=== PATIENT | male | born 1985 | race African-American/Black ===

== ENCOUNTER 2018-05-26 07:54 | Emergency (ER) | payer SELFPAY ==
[2018-05-26 08:58] LABS: Absolute Lymphocytes (CBC) 1.3 K/uL (0.7-4.9); Absolute Monocytes 0.6 K/uL (0.1-1.3); Basophils % 0.9 % (0-1.3); Hematocrit 49.3 % (39.6-49.0); Lymphocytes % 32.5 % (15.3-44.8); MPV 10.8 fL (7.6-11.3); Monocytes % 13.9 % (3.3-12.3); RBC Red Blood Cell Count 5.56 M/uL (4.33-5.43)
[2018-05-26 09:01] LABS: Protime INR 1.05
[2018-05-26] MEDS ORDERED: ASPIRIN 81 MG CHEWABLE TABLET ONE (09:09)
[2018-05-26] MEDS ORDERED: KETOROLAC 30 MG/ML INJ ONE (09:09)
[2018-05-26] MEDS ORDERED: NA CHLORIDE 0.9% 1,000 ML ONE (09:10)
--- NOTE | 2018-05-26 09:12 | RAD REPORT ---
EXAM DESCRIPTION: RAD - Chest Single View - 05/26/2018 9:01 am CLINICAL HISTORY: PAIN Chest pain. COMPARISON: CHEST SINGLE VIEW dated 07/03/2014 FINDINGS: Portable technique limits examination quality. The lungs are grossly clear. The heart is normal in size. No displaced fractures. IMPRESSION: No acute intrathoracic process suspected.
[2018-05-26 09:18] LABS: ALT/SGPT 20 U/L (12-78); AST/SGOT 9 U/L (15-37); Albumin 3.8 g/dL (3.4-5.0); Alkaline Phosphatase 51 U/L (45-117); BUN Blood Urea Nitrogen 11 mg/dL (7-18); Bicarbonate 32 mmol/L (21-32); Bilirubin Direct 0.1 mg/dL (0-0.2); Bilirubin Total 0.4 mg/dL (0.2-1.0); Glucose Level 94 mg/dL (74-106); NT PRO-BNP 12 pg/mL (<125); Potassium 4.1 mmol/L (3.5-5.1); Protein, Total 7.3 g/dL (6.4-8.2); Sodium Level 142 mmol/L (136-145); Troponin (Emerg Dept Use Only) < 0.02 ng/mL (0.0-0.045)
[2018-05-26 09:52] LABS: Barbiturates NEGATIVE (NEGATIVE); Benzodiazepines NEGATIVE (NEGATIVE); Cocaine NEGATIVE (NEGATIVE); METHAMPHETAM NEGATIVE (NEGATIVE); Methadone NEGATIVE (NEGATIVE); Opiates NEGATIVE (NEGATIVE); Phencyclidine NEGATIVE (NEGATIVE); THC Cannibis NEGATIVE (NEGATIVE)
[2018-05-26] MEDS ORDERED: BENZONATATE 100 MG CAP PO ONE (10:21)
--- NOTE | 2018-05-26 10:54 | ER ---
Nurse's Notes [facility] Name: Austen Carrasco Age: 33 yrs Sex: Male : 1985 Arrival Date: 05/26/2018 Time: 07:56 Bed 20 Private MD: None, None Diagnosis: Hypertensive heart disease;Other chest pain;Cough Presentation: 05/26 08:11 Presenting complaint: Patient states: cough and chest pain x 3 days. Dizziness that ss began this morning. Transition of care: patient was not received from another setting of care. Onset of symptoms was May 23, 2018. Risk Assessment: Do you want to hurt yourself or someone else? Patient reports no desire to harm self or others. Initial Sepsis Screen: Does the patient meet any 2 criteria? No. Patient's initial sepsis screen is negative. Does the patient have a suspected source of infection? No. Patient's initial sepsis screen is negative. Care prior to arrival: None. 08:11 Method Of Arrival: Ambulatory ss 08:11 Acuity: KT 3 ss Historical: - Allergies: 08:15 No Known Allergies; ss - Home Meds: 08:15 None [Active]; ss - PMHx: 08:15 "mild heart attack"; ss - PSHx: 08:15 None; ss - Immunization history:: Adult Immunizations unknown. - Social history:: Smoking status: Patient/guardian denies using tobacco. - Ebola Screening: : Patient denies exposure to infectious person Patient denies travel to an Ebola-affected area in the 21 days before illness onset. Screenin:00 Abuse screen: Denies threats or abuse. Denies injuries from another. Nutritional sg screening: No deficits noted. Tuberculosis screening: No symptoms or risk factors identified. Never had TB. Fall Risk None identified. Assessment: 09:10 General: Appears in no apparent distress. well groomed, well developed, well nourished. sg Pain: Complains of pain in chest. 09:10 Pain: Pain does not radiate. Quality of pain is described as aching, dull. Neuro: Level sg of Consciousness is awake, alert, obeys commands, Oriented to person, place, time, situation, Underwriting Analyst are equal bilaterally Moves all extremities. Full function Gait is steady, Speech is normal, Facial symmetry appears normal, Pupils are PERRLA. Cardiovascular: Capillary refill is brisk in bilateral fingers Patient's skin is warm and dry. Chest pain is described as mild, quality is dull pressure. Respiratory: Airway is patent Respiratory effort is even, unlabored, Respiratory pattern is regular, symmetrical. GI: No signs and/or symptoms were reported involving the gastrointestinal system. : No signs and/or symptoms were reported regarding the genitourinary system. EENT: No signs and/or symptoms were reported regarding the EENT system. Derm: Skin is. Musculoskeletal: No signs and/or symptoms reported regarding the musculoskeletal system. 09:18 Reassessment: pt encouraged to provide urine specimen, pt denies needing to urinate, IV sg fluids continue to infuse, pt educated on Clean catch urine specimen procedure, stated understanding, awaiting results at this time, awaiting urine specimen. Vital Signs: 08:15 BP 159 / 103; Pulse 82; Resp 16; Temp 98.1(O); Pulse Ox 100% on R/A; Weight 88.45 kg; ss Height 5 ft. 9 in. (175.26 cm); Pain 7/10; 08:50 BP 142 / 102 RA; Pulse 78; Pulse Ox 100% on R/A; sg 09:00 BP 148 / 106 LA; Pulse 77; Resp 17; Pulse Ox 99% on R/A; sg 10:45 BP 133 / 92; Pulse 72; Resp 12 S; Pulse Ox 100% on R/A; sg 08:15 Body Mass Index 28.80 (88.45 kg, 175.26 cm) ED Course: 07:56 Patient arrived in ED. dl4 07:56 None, None is Private Physician. dl4 08:13 Triage completed. ss 08:15 Arm band placed on right wrist. ss 08:19 David Pathak PA is PHCP. cp 08:19 Rosa West MD is Attending Physician. cp 08:34 EKG done, by general service technician. reviewed by David DEVI. at1 08:41 Colt Bates, MARCELLUS is Primary Nurse. sg 08:50 Initial lab(s) drawn, by sc, sent to lab. Inserted saline lock: 20 gauge in right dh3 antecubital area, using aseptic technique. Blood collected. 09:05 XRAY Chest (1 view) In Process Unspecified. EDMS 09:15 Patient has correct armband on for positive identification. Bed in low position. Call sg light in reach. bilingual teacher assistant on. Pulse ox on. NIBP on. Warm blanket given. Head of bed elevated. 09:15 No provider procedures requiring assistance completed. 09:18 Flu and/or RSV swab sent to lab. 3 09:55 IV discontinued, intact, bleeding controlled, No redness/swelling at site. Pressure sg dressing applied. Administered Medications: 09:14 Drug: TORadol 30 mg Route: IVP; Site: right antecubital; sg 09:14 Drug: NS 0.9% 1000 ml Route: IV; Rate: 1 bolus; Site: right antecubital; sg 09:15 Drug: Aspirin Chewable Tablet 324 mg Route: PO; sg 10:20 Drug: Tessalon Perle 200 mg Route: PO; sg Outcome: 10:53 Discharge ordered by MD. cp 10:55 Discharged to home ambulatory, with family. sg 10:55 Condition: good 10:55 Discharge instructions given to patient, Instructed on discharge instructions, follow up and referral plans. safety practices, Demonstrated understanding of instructions, follow-up care. 11:03 Patient left the ED. 3 Signatures: Dispatcher [employer] EDMS Colt Bates RN RN sg Smirch, Shelby RN MARCELLUS ss Ivon Chao, honey processor EKG Tat1 David Pathak PA PA cp Herrera, Deanna 3 Nikhil Scales dl4 Corrections: (The following items were deleted from the chart) 09:15 09:00 BP 148 / 106; Pulse 77bpm; Resp 17bpm; Pulse Ox 99% RA; sg sg 09:15 08:50 BP 142 / 102; Pulse 78bpm; Pulse Ox 100% RA; sg sg
--- NOTE | 2018-05-26 10:55 | EDPHYS ---
Physician Documentation [facility] Name: Austen Carrasco Age: 33 yrs Sex: Male : 1985 Arrival Date: 05/26/2018 Time: 07:56 Bed 20 Private MD: None, None ED Physician Rosa West HPI: 05/26 08:40 This 33 yrs old Black Male presents to ER via Ambulatory with complaints of Chest Pain. cp 08:40 The patient or guardian reports chest pain that is located primarily in the anterior cp chest wall, middle. 08:40 The pain does not radiate. Associated signs and symptoms: Pertinent positives: cough, cp dizziness, Pertinent negatives: abdominal pain, diaphoresis, lower extremity pain, lower extremity swelling, recent travel, shortness of breath, syncope, vomiting. The chest pain is described as a heaviness. Duration: The patient or guardian reports a single episode, that is still ongoing. Severity of pain: in the emergency department the pain is a 7 / 10. 08:40 Modifying factors: the symptoms are aggravated by lying flat. cp Historical: - Allergies: 08:15 No Known Allergies; ss - Home Meds: 08:15 None [Active]; ss - PMHx: 08:15 "mild heart attack"; ss - PSHx: 08:15 None; ss - Immunization history:: Adult Immunizations unknown. - Social history:: Smoking status: Patient/guardian denies using tobacco. - Ebola Screening: : Patient denies exposure to infectious person Patient denies travel to an Ebola-affected area in the 21 days before illness onset. ROS: 08:45 Constitutional: Negative for body aches, chills, fever, poor PO intake. cp 08:45 Eyes: Negative for injury, pain, redness, and discharge. cp 08:45 ENT: Negative for drainage from ear(s), ear pain, sore throat, difficulty swallowing, difficulty handling secretions. 08:45 Neck: Negative for pain with movement, pain at rest, stiffness, tenderness. 08:45 Cardiovascular: Positive for chest pain, Negative for edema, palpitations. 08:45 Respiratory: Negative for cough, shortness of breath, wheezing. 08:45 Abdomen/GI: Negative for abdominal pain, nausea, vomiting, and diarrhea. 08:45 : Negative for urinary symptoms. 08:45 Skin: Negative for cellulitis, rash. 08:45 Neuro: Positive for dizziness, Negative for altered mental status, headache, syncope, near syncope, weakness. 08:45 All other systems are negative. Exam: 08:25 ECG was reviewed by the Attending Physician. cp 08:52 Constitutional: The patient appears in no acute distress, alert, awake, cp non-diaphoretic, non-toxic, well developed, well nourished. 08:52 Head/Face: Normocephalic, atraumatic. Eyes: Pupils equal round and reactive to light, cp extra-ocular motions intact. Lids and lashes normal. Conjunctiva and sclera are non-icteric and not injected. Cornea within normal limits. Periorbital areas with no swelling, redness, or edema. ENT: Nares patent. No nasal discharge, no septal abnormalities noted. Tympanic membranes are normal and external auditory canals are clear. Oropharynx with no redness, swelling, or masses, exudates, or evidence of obstruction, uvula midline. Mucous membranes moist. 08:52 Chest/axilla: Inspection: normal, Palpation: crepitus, is not appreciated, tenderness, that is mild, of the mid-sternal area, that partially reproduces the patient's complaints. 08:52 Cardiovascular: Rate: normal, Rhythm: regular, Pulses: Pulses are 2+ in right radial artery and left radial artery. Heart sounds: murmur, not appreciated, rub, not appreciated, gallop, not appreciated, Edema: is not appreciated, JVD: is not appreciated. 08:52 Respiratory: the patient does not display signs of respiratory distress, Respirations: normal, no use of accessory muscles, no retractions, no splinting, no tachypnea, labored breathing, is not present, Breath sounds: are clear throughout, no decreased breath sounds, no stridor, no wheezing. 08:52 Abdomen/GI: Inspection: abdomen appears normal, Bowel sounds: active, all quadrants, Palpation: abdomen is soft and non-tender, in all quadrants. 08:52 Back: pain, is absent, ROM is normal. 08:52 Skin: cellulitis, is not appreciated, no rash present. 08:52 Neuro: Orientation: to person, place \\T\\ time. Mentation: is normal, Cerebellar function: is grossly normal, Motor: is normal, Sensation: is normal. Vital Signs: 08:15 BP 159 / 103; Pulse 82; Resp 16; Temp 98.1(O); Pulse Ox 100% on R/A; Weight 88.45 kg; ss Height 5 ft. 9 in. (175.26 cm); Pain 7/10; 08:50 BP 142 / 102 RA; Pulse 78; Pulse Ox 100% on R/A; sg 09:00 BP 148 / 106 LA; Pulse 77; Resp 17; Pulse Ox 99% on R/A; sg 10:45 BP 133 / 92; Pulse 72; Resp 12 S; Pulse Ox 100% on R/A; sg 08:15 Body Mass Index 28.80 (88.45 kg, 175.26 cm) ss MDM: 08:19 Patient medically screened. cp 09:00 Differential diagnosis: abnormal EKG, acute myocardial infarction, chest wall pain, cp cholecystitis, Cholelithiasis costochondritis, esophagitis, gastroesophageal reflux disease (GERD), myocarditis, pancreatitis, peptic ulcer disease, pericarditis, pleurisy, pneumonia, pneumothorax, pulmonary embolus, stable angina, thoracic aortic disection, unstable angina. 10:50 Data reviewed: vital signs, nurses notes, lab test result(s), EKG, radiologic studies, cp plain films. 10:50 Test interpretation: by ED physician or midlevel provider: ECG, plain radiologic cp studies. 10:52 Counseling: I had a detailed discussion with the patient and/or guardian regarding: the cp historical points, exam findings, and any diagnostic results supporting the discharge/admit diagnosis, the presence of at least one elevated blood pressure reading (>120/80) during this emergency department visit, lab results, radiology results, the need for outpatient follow up, a family practitioner, to return to the emergency department if symptoms worsen or persist or if there are any questions or concerns that arise at home. 10:52 Response to treatment: the patient's symptoms have markedly improved after treatment. cp Special discussion: Based on the patient's history, exam, and Dx evaluation, there is no indication for emergent intervention or inpatient Tx. It is understood by the patient/guardian that if the Sx's persist or worsen they need to return immediately for re-evaluation. ED course: VSS. Pain improved with meds. Labs, EKG and chest xray negative for acute findings. Will discharge to home for continued monitoring. 05/26 08:39 Order name: Basic Metabolic Panel; Complete Time: 09:38 cp 05/26 10:41 Interpretation: Reviewed. cp 05/26 08:39 Order name: CBC with Diff; Complete Time: 09:08 cp 05/26 09:08 Interpretation: Normal except: WBC 4.0; RBC 5.56; HCT 49.3; MN% 13.9. cp 05/26 08:39 Order name: LFT's; Complete Time: 09:38 cp 05/26 09:38 Interpretation: Normal except: AST 9. cp 05/26 08:39 Order name: Magnesium; Complete Time: 09:38 cp 05/26 08:39 Order name: NT PRO-BNP; Complete Time: 09:38 cp 05/26 08:39 Order name: PT-INR; Complete Time: 09:08 cp 05/26 08:39 Order name: Troponin (emerg Dept Use Only); Complete Time: 09:38 cp 05/26 09:38 Interpretation: TROPED < 0.02; Reviewed. cp 05/26 08:39 Order name: XRAY Chest (1 view); Complete Time: 09:38 cp 05/26 09:38 Interpretation: Report review. cp 05/26 09:08 Order name: Influenza Screen (a \\T\\ B); Complete Time: 09:53 cp 05/26 09:53 Interpretation: Reviewed. cp 05/26 09:09 Order name: UDS; Complete Time: 10:19 cp 05/26 10:19 Interpretation: Reviewed. cp 05/26 09:37 Order name: Urine Dipstick--Ancillary (enter results) 05/26 08:39 Order name: EKG; Complete Time: 08:40 cp 05/26 08:39 Order name: Cardiac monitoring; Complete Time: 08:42 cp 05/26 08:39 Order name: EKG - Nurse/Tech; Complete Time: 09:05 cp 05/26 08:39 Order name: IV Saline Lock; Complete Time: 08:43 cp 05/26 08:39 Order name: Labs collected and sent; Complete Time: 08:43 cp 05/26 08:39 Order name: O2 Per Protocol; Complete Time: 08:43 cp 05/26 08:39 Order name: O2 Sat Monitoring; Complete Time: 08:43 cp 05/26 08:40 Order name: Blood Pressure Recheck: bilateral upper extremity; Complete Time: 09:10 cp 05/26 09:09 Order name: Urine Dipstick-Ancillary (obtain specimen); Complete Time: 09:38 cp EC:25 Rate is 72 beats/min. Rhythm is regular. MS interval is normal. QRS interval is normal. cp QT interval is normal. Interpreted by me. Reviewed by me. Administered Medications: 09:14 Drug: TORadol 30 mg Route: IVP; Site: right antecubital; sg 09:14 Drug: NS 0.9% 1000 ml Route: IV; Rate: 1 bolus; Site: right antecubital; sg 09:15 Drug: Aspirin Chewable Tablet 324 mg Route: PO; sg 10:20 Drug: Tessalon Perle 200 mg Route: PO; sg Disposition: 18:46 Co-signature as Attending Physician, Rosa West MD. ma2 Disposition: 05/26/18 10:53 Discharged to Home. Impression: Hypertensive heart disease, Other chest pain, Cough. - Condition is Stable. - Discharge Instructions: Chest Wall Pain, Hypertension, How to Take Your Blood Pressure, [id number], Aspirin and Your Heart, Cough, Adult, Managing Your Hypertension. - Prescriptions for Tessalon Perles 100 mg Oral Capsule - take 2 capsule by ORAL route every 8 hours As needed; 30 capsule. Naprosyn 500 mg Oral Tablet - take 1 tablet by ORAL route 2 times per day take with food; 20 tablet. - Medication Reconciliation Form, Thank You Letter, Antibiotic Education, Prescription Opioid Use form. - Follow up: Private Physician; When: 2 - 3 days; Reason: Recheck today's complaints. - Problem is new. - Symptoms have improved. Signatures: Dispatcher [employer] Colt Juarez RN RN sg Smirch, Shelby, RN RN ss Page, Corey, PA PA cp Herrera, Deanna formerly [facility] Rosa West MD MD ma2 Corrections: (The following items were deleted from the chart) 11:03 10:53 05/26/2018 10:53 Discharged to Home. Impression: Hypertensive heart disease; dh3 Other chest pain; Cough. Condition is Stable. Forms are Medication Reconciliation Form, Thank You Letter, Antibiotic Education, Prescription Opioid Use. Follow up: Private Physician; When: 2 - 3 days; Reason: Recheck today's complaints. Problem is new. Symptoms have improved. cp
--- NOTE | 2018-05-26 12:28 | EKG ---
Test Date: 2018-05-26 Test Time: 08:18:54 Insulation Worker Interior Surface: SHANTELL MEASUREMENT RESULTS: Intervals: Rate: 72 SD: 164 QRSD: 88 QT: 390 QTc: 427 [place]: P: 60 SD: 164 QRS: 74 T: 46 INTERPRETIVE STATEMENTS: Normal sinus rhythm Normal ECG Compared to ECG 07/03/2014 12:06:02 No significant changes Electronically Signed On 05-26-18 12:27:38 TEST DEPARTMENT HELPER by Lisandro Meza
[2018-05-26 15:16] LABS: Urine Blood TRACE (NEG); Urine Glucose NEGATIVE (NEG); Urine Protein NEGATIVE (NEG); Urine pH 7.5 (5.0-7.0)
== END 2018-05-26 11:03 | disposition home or self-care (01) ==
LOC: ER 07:54
DX: I11.9 Hypertensive heart disease without heart failure (principal); R07.9 Chest pain, unspecified; R05 Cough
CPT/HCPCS: 36415; 71045; 80048; 80076; 80307; 81003; 83735; 83880; 84484; 85025; 85610; 87804; 93005; 96374; 99285; J7030

== ENCOUNTER 2018-07-20 10:08 | Emergency (ER) | payer SELFPAY ==
--- NOTE | 2018-07-20 11:20 | RAD REPORT ---
EXAM DESCRIPTION: Malachi Single View07/20/2018 11:13 am CLINICAL HISTORY: Chest pain COMPARISON: April 2018 FINDINGS: The lungs appear clear of acute infiltrate. The heart is either upper limits normal or rey rderline enlarged IMPRESSION: No acute abnormalities displayed
[2018-07-20] MEDS ORDERED: ASPIRIN 81 MG CHEWABLE TABLET ONE (11:38)
[2018-07-20] MEDS ORDERED: ACETAMINOPHEN 325 MG TABLET ONE (11:39)
[2018-07-20 11:40] LABS: Absolute Lymphocytes (CBC) 1.4 K/uL (0.7-4.9); Absolute Monocytes 0.4 K/uL (0.1-1.3); Absolute Neutrophil 1.7 K/uL (1.8-8.0); Basophils % 0.6 % (0-1.3); Eosinophils % 2.7 % (0-4.4); Hematocrit 48.1 % (39.6-49.0); MPV 10.3 fL (7.6-11.3); Protime INR 1.06
[2018-07-20 11:44] LABS: ALT/SGPT 22 U/L (12-78); AST/SGOT 14 U/L (15-37); Albumin 3.9 g/dL (3.4-5.0); Alkaline Phosphatase 51 U/L (45-117); BUN Blood Urea Nitrogen 11 mg/dL (7-18); Bicarbonate 28 mmol/L (21-32); Bilirubin Direct < 0.1 mg/dL (0-0.2); Bilirubin Total 0.3 mg/dL (0.2-1.0); Glucose Level 98 mg/dL (74-106); Magnesium 1.9 mg/dL (1.8-2.4); Potassium 4.5 mmol/L (3.5-5.1); Protein, Total 7.3 g/dL (6.4-8.2); Sodium Level 139 mmol/L (136-145); Troponin (Emerg Dept Use Only) < 0.02 ng/mL (0.0-0.045)
[2018-07-20 11:48] LABS: NT PRO-BNP < 5 pg/mL (<125)
--- NOTE | 2018-07-20 12:41 | ER ---
Nurse's Notes [facility] Name: Austen Carrasco Age: 33 yrs Sex: Male : 1985 Arrival Date: 07/20/2018 Time: 10:11 Bed 15 Private MD: Diagnosis: Headache;Chest pain, unspecified Presentation: 07/20 10:22 Presenting complaint: Patient states: my head killing me and my chest hurts, fatigued, hj started yesterday; denies cough, denies fever; took tylenol 3 am this AM; reports nausea; reports;. Transition of care: patient was not received from another setting of care. Onset of symptoms was July 20, 2018. Risk Assessment: Do you want to hurt yourself or someone else? Patient reports no desire to harm self or others. Initial Sepsis Screen: Does the patient meet any 2 criteria? No. Patient's initial sepsis screen is negative. Does the patient have a suspected source of infection? No. Patient's initial sepsis screen is negative. Care prior to arrival: None. 10:22 Method Of Arrival: Ambulatory 10:22 Acuity: KT 3 hj Triage Assessment: 10:24 Headache History: Denies prior headaches. General: Appears in no apparent distress. hj uncomfortable, Behavior is calm, cooperative, appropriate for age. Pain: Complains of pain in head, chest Pain currently is 10 out of 10 on a pain scale. Pain began 1 day ago. Also complains of nausea. Neuro: Level of Consciousness is awake, alert, obeys commands, Oriented to person, place, time, situation, Appropriate for age. Historical: - Allergies: 10:24 No Known Drug Allergies; hj - Home Meds: 10:24 None [Active]; hj - PMHx: 10:24 "mild heart attack"; hj - PSHx: 10:24 None; hj - Immunization history:: Adult Immunizations up to date. - Social history:: Smoking status: Patient/guardian denies using tobacco, Patient/guardian denies using alcohol. - Ebola Screening: : Patient negative for fever greater than or equal to 101.5 degrees Fahrenheit, and additional compatible Ebola Virus Disease symptoms Patient denies exposure to infectious person Patient denies travel to an Ebola-affected area in the 21 days before illness onset. Screenin:24 Abuse screen: Denies threats or abuse. Denies injuries from another. Nutritional hj screening: No deficits noted. Tuberculosis screening: No symptoms or risk factors identified. Fall Risk None identified. Assessment: 10:40 General: Appears in no apparent distress. Behavior is calm, cooperative, appropriate tw2 for age. Pain: Complains of pain in chest and left breast and anterior aspect of left upper chest. Neuro: Level of Consciousness is awake, alert, obeys commands, Oriented to person, place, time, situation, Reports headache. Cardiovascular: Heart tones S1 S2 Patient's skin is warm and dry. Respiratory: Reports cough that is Airway is patent Respiratory effort is even, unlabored, Respiratory pattern is regular, symmetrical, Breath sounds are clear bilaterally. GI: Abdomen is flat, Bowel sounds present X 4 quads. Reports diarrhea. : No signs and/or symptoms were reported regarding the genitourinary system. EENT: No signs and/or symptoms were reported regarding the EENT system. Derm: No signs and/or symptoms reported regarding the dermatologic system. Musculoskeletal: Range of motion: intact in all extremities. 11:36 Reassessment: Patient appears in no apparent distress at this time. No changes from tw2 previously documented assessment. Patient and/or family updated on plan of care and expected duration. Pain level reassessed. Patient is alert, oriented x 3, equal unlabored respirations, skin warm/dry/pink. 12:34 Reassessment: Patient appears in no apparent distress at this time. No changes from tw2 previously documented assessment. Patient and/or family updated on plan of care and expected duration. Pain level reassessed. Patient is alert, oriented x 3, equal unlabored respirations, skin warm/dry/pink. 13:19 Reassessment: Patient appears in no apparent distress at this time. No changes from tw2 previously documented assessment. Patient and/or family updated on plan of care and expected duration. Pain level reassessed. Patient is alert, oriented x 3, equal unlabored respirations, skin warm/dry/pink. Vital Signs: 10:25 BP 127 / 96; Pulse 76; Resp 18; Temp 98.1(O); Pulse Ox 100% on R/A; Weight 90.72 kg; hj Height 5 ft. 9 in. (175.26 cm); Pain 10/10; 11:36 BP 126 / 78; Pulse 65; Resp 13; Pulse Ox 98% on R/A; tw2 12:31 BP 121 / 78; Pulse 65; Resp 15; Pulse Ox 100% on R/A; tw2 10:25 Body Mass Index 29.54 (90.72 kg, 175.26 cm) hj ED Course: 10:11 Patient arrived in ED. as 10:21 [facility] snw 10:21 Lewis Islas MD is Attending Physician. snw 10:23 Triage completed. hj 10:25 Arm band placed on right wrist. hj 10:25 Patient has correct armband on for positive identification. Placed in gown. Bed in low hj position. Call light in reach. Side rails up X 1. 10:34 EKG done, by process controls technician. reviewed by Lewis Islas MD. at1 10:40 Nani Ferrera, MARCELLUS is Primary Nurse. tw2 11:13 XRAY Chest (1 view) In Process Unspecified. EDMS 11:14 Initial lab(s) drawn, by me, sent to lab. Flu and/or RSV swab sent to lab. Inserted jb1 saline lock: 22 gauge in left antecubital area, using aseptic technique. Blood collected. 11:15 Flu Sent. jb1 13:28 No provider procedures requiring assistance completed. IV discontinued, intact, tw2 bleeding controlled, No redness/swelling at site. Pressure dressing applied. Administered Medications: 11:30 Drug: Aspirin Chewable Tablet 324 mg Route: PO; tw2 12:30 Follow up: Response: No adverse reaction tw2 11:30 Drug: Tylenol 650 mg Route: PO; tw2 12:30 Follow up: Response: No adverse reaction tw2 12:48 CANCELLED (route changed to IV): TORadol 60 mg IM once tw2 12:50 Drug: TORadol 30 mg Route: IVP; Site: left antecubital; tw2 13:28 Follow up: Response: No adverse reaction; Pain is decreased tw2 Outcome: 12:40 Discharge ordered by . snw 13:28 Discharged to home ambulatory, with family. tw2 13:28 Condition: stable 13:28 Discharge instructions given to patient, family, Instructed on discharge instructions, follow up and referral plans. medication usage, Demonstrated understanding of medications, Prescriptions given X 3. 13:29 Patient left the ED. tw2 Signatures: Dispatcher [employer] EDMS Olivier Howe jb1 Jerilyn Dennis, GRADES 1 6 TUTOR-C GRADES 1 6 TUTOR-Csnw Kelsy Woodward Amanda, operations vocational instructor EKG Tat1 Mushtaq Baez, RN RN hj Nani Ferrera RN RN tw2 Corrections: (The following items were deleted from the chart) 10 10:22 Presenting complaint: Patient states: my head killing me and my chest hurts, hj fatigued, started yesterday; denies cough, denies fever; took tylenol 3 am this AM; reports nausea; 10: 10:25 Pulse 76bpm; Resp 18bpm; Pulse Ox 100% RA; Temp 98.1F Oral; 90.72 kg; Height 5 hj ft. 9 in.; BMI: 29.5; Pain 02/03; hj 10: 10:22 Acuity: KT 4 hj hj
--- NOTE | 2018-07-20 12:41 | EDPHYS ---
Physician Documentation [facility] Name: Austen Carrasco Age: 33 yrs Sex: Male : 1985 Arrival Date: 07/20/2018 Time: 10:11 Bed 15 Private MD: ED Physician Lewsi Islas HPI: 07/20 10:52 This 33 yrs old Black Male presents to ER via Ambulatory with complaints of Headache, snw Chest Pain, Nausea. 10:52 The patient complains of pain to the forehead. snw 10:52 Pt c/o nausea, chest pain, body aches. Onset: The symptoms/episode began/occurred snw gradually, 3 day(s) ago. Severity of symptoms: At their worst the symptoms were moderate. The patient has experienced a previous episode. The patient has not recently seen a physician, and does not have an established primary care provider, just moved to area. Historical: - Allergies: 10:24 No Known Drug Allergies; hj - Home Meds: 10:24 None [Active]; hj - PMHx: 10:24 "mild heart attack"; hj - PSHx: 10:24 None; hj - Immunization history:: Adult Immunizations up to date. - Social history:: Smoking status: Patient/guardian denies using tobacco, Patient/guardian denies using alcohol. - Ebola Screening: : Patient negative for fever greater than or equal to 101.5 degrees Fahrenheit, and additional compatible Ebola Virus Disease symptoms Patient denies exposure to infectious person Patient denies travel to an Ebola-affected area in the 21 days before illness onset. ROS: 10:50 Eyes: Negative for injury, pain, redness, and discharge, ENT: Negative for injury, snw pain, and discharge, Neck: Negative for injury, pain, and swelling. 10:50 Respiratory: Negative for shortness of breath, cough, wheezing, and pleuritic chest pain, Abdomen/GI: Negative for abdominal pain, nausea, vomiting, diarrhea, and constipation, Back: Negative for injury and pain, : Negative for injury, bleeding, discharge, and swelling, MS/Extremity: Negative for injury and deformity, Skin: Negative for injury, rash, and discoloration. 10:50 Constitutional: Positive for body aches, malaise. 10:50 Cardiovascular: Positive for chest pain, of the anterior aspect of left upper chest and left breast. 10:50 Neuro: Positive for headache. Exam: 10:50 Constitutional: This is a well developed, well nourished patient who is awake, alert, snw and in no acute distress. 10:50 Head/Face: Normocephalic, atraumatic. Eyes: Pupils equal round and reactive to light, extra-ocular motions intact. Lids and lashes normal. Conjunctiva and sclera are non-icteric and not injected. Cornea within normal limits. Periorbital areas with no swelling, redness, or edema. ENT: Nares patent. No nasal discharge, no septal abnormalities noted. Tympanic membranes are normal and external auditory canals are clear. Oropharynx with no redness, swelling, or masses, exudates, or evidence of obstruction, uvula midline. Mucous membranes moist. Neck: Trachea midline, no thyromegaly or masses palpated, and no cervical lymphadenopathy. Supple, full range of motion without nuchal rigidity, or vertebral point tenderness. No Meningismus. Chest/axilla: Normal chest wall appearance and motion. Nontender with no deformity. No lesions are appreciated. Cardiovascular: Regular rate and rhythm with a normal S1 and S2. No gallops, murmurs, or rubs. Normal PMI, no JVD. No pulse deficits. Respiratory: Lungs have equal breath sounds bilaterally, clear to auscultation and percussion. No rales, rhonchi or wheezes noted. No increased work of breathing, no retractions or nasal flaring. Abdomen/GI: Soft, non-tender, with normal bowel sounds. No distension or tympany. No guarding or rebound. No evidence of tenderness throughout. Back: No spinal tenderness. No costovertebral tenderness. Full range of motion. Skin: Warm, dry with normal turgor. Normal color with no rashes, no lesions, and no evidence of cellulitis. MS/ Extremity: Pulses equal, no cyanosis. Neurovascular intact. Full, normal range of motion. Neuro: Awake and alert, GCS 15, oriented to person, place, time, and situation. Cranial nerves II-XII grossly intact. Motor strength 5/5 in all extremities. Sensory grossly intact. Cerebellar exam normal. Normal gait. 10:50 Constitutional: The patient appears alert, awake. Vital Signs: 10:25 BP 127 / 96; Pulse 76; Resp 18; Temp 98.1(O); Pulse Ox 100% on R/A; Weight 90.72 kg; hj Height 5 ft. 9 in. (175.26 cm); Pain 10/10; 11:36 BP 126 / 78; Pulse 65; Resp 13; Pulse Ox 98% on R/A; tw2 12:31 BP 121 / 78; Pulse 65; Resp 15; Pulse Ox 100% on R/A; tw2 10:25 Body Mass Index 29.54 (90.72 kg, 175.26 cm) hj MDM: 10:50 Patient medically screened. snw 12:41 Data reviewed: vital signs, nurses notes. Data interpreted: Pulse oximetry: on room air snw is 100 %. Interpretation: normal. Counseling: I had a detailed discussion with the patient and/or guardian regarding: the historical points, exam findings, and any diagnostic results supporting the discharge/admit diagnosis, lab results, radiology results, the need for outpatient follow up, to return to the emergency department if symptoms worsen or persist or if there are any questions or concerns that arise at home. Special discussion: Based on the history and exam findings, there is no indication for further emergent testing or inpatient evaluation. I discussed with the patient/guardian the need to see the primary care provider for further evaluation of the symptoms. 07/20 10:58 Order name: Flu; Complete Time: 11:51 w 07/20 10:58 Order name: Basic Metabolic Panel; Complete Time: 11:51 w 07/20 10:58 Order name: CBC with Diff; Complete Time: 11:51 w 07/20 10:58 Order name: LFT's; Complete Time: 11:51 w 07/20 10:58 Order name: Magnesium; Complete Time: 11:51 snw 07/20 10:58 Order name: NT PRO-BNP; Complete Time: 11:51 snw 07/20 10:43 Order name: EKG; Complete Time: 10:43 tw2 07/20 10:58 Order name: PT-INR; Complete Time: 11:41 w 07/20 10:58 Order name: Troponin (emerg Dept Use Only); Complete Time: 11:51 snw 07/20 10:58 Order name: XRAY Chest (1 view); Complete Time: 11:28 07/20 10:25 Order name: EKG - Nurse/Tech; Complete Time: 11:32 07/20 10:58 Order name: Cardiac monitoring; Complete Time: 11:07/20 10:58 Order name: EKG - Nurse/Tech; Complete Time: 11:07/20 10:58 Order name: IV Saline Lock; Complete Time: 11:07/20 10:58 Order name: Labs collected and sent; Complete Time: 07/20 10:58 Order name: O2 Per Protocol; Complete Time: 07/20 10:58 Order name: O2 Sat Monitoring; Complete Time: :w Administered Medications: 11:30 Drug: Aspirin Chewable Tablet 324 mg Route: PO; tw2 12:30 Follow up: Response: No adverse reaction tw2 11:30 Drug: Tylenol 650 mg Route: PO; tw2 12:30 Follow up: Response: No adverse reaction tw2 12:48 CANCELLED (route changed to IV): TORadol 60 mg IM once tw2 12:50 Drug: TORadol 30 mg Route: IVP; Site: left antecubital; tw2 13:28 Follow up: Response: No adverse reaction; Pain is decreased tw2 Disposition: 18:14 Co-signature as Attending Physician, Lewis Islas MD I agree with the assessment and wa plan of care. Disposition: 07/20/18 12:40 Discharged to Home. Impression: Headache, Chest pain, unspecified. - Condition is Stable. - Discharge Instructions: Nonspecific Chest Pain, General Headache Without Cause, Migraine Headache, Hypertension, Aspirin and Your Heart, Rehydration, Adult. - Prescriptions for Zyrtec 10 mg Oral Tablet - take 1 tablet by ORAL route once daily As needed; 20 tablet. orphenadrine citrate 100 mg Oral Tablet Sustained Release - take 1 tablet by ORAL route 2 times per day As needed; 20 tablet. promethazine 25 mg Oral Tablet - take 1 tablet by ORAL route every 6 hours As needed; 20 tablet. - Medication Reconciliation Form, Thank You Letter, Antibiotic Education, Prescription Opioid Use form. - Follow up: Private Physician; When: 2 - 3 days; Reason: Recheck today's complaints, Continuance of care, Re-evaluation by your physician. Follow up: Emergency Department; When: As needed; Reason: Worsening of condition. Signatures: Dispatcher [employer] EDMS Jeannie, Jerilyn, COREMAKER SUPERVISOR-C COREMAKER SUPERVISOR-Csnw Mushtaq Baez, RN RN hj Nani Ferrera RN RN tw2 Lewis Islas MD MD nh Corrections: (The following items were deleted from the chart) 12:48 12:40 TORadol 60 mg IM once ordered. snw tw2 12:48 12:47 TORadol 60 mg IM once ordered. tw2 tw2 13:29 12:40 07/20/2018 12:40 Discharged to Home. Impression: Headache; Chest pain, tw2 unspecified. Condition is Stable. Forms are Medication Reconciliation Form, Thank You Letter, Antibiotic Education, Prescription Opioid Use. Follow up: Private Physician; When: 2 - 3 days; Reason: Recheck today's complaints, Continuance of care, Re-evaluation by your physician. Follow up: Emergency Department; When: As needed; Reason: Worsening of condition. snw
[2018-07-20] MEDS ORDERED: KETOROLAC 30 MG/ML INJ ONE (12:58)
--- NOTE | 2018-07-20 17:16 | EKG ---
Test Date: 2018-07-20 Test Time: 10:32:08 Mediation Commissioner: SHANTELL MEASUREMENT RESULTS: Intervals: Rate: 62 TX: 162 QRSD: 92 QT: 392 QTc: 397 [place]: P: 51 TX: 162 QRS: 65 T: 36 INTERPRETIVE STATEMENTS: Normal sinus rhythm Normal ECG Compared to ECG 05/26/2018 08:18:54 No significant changes Electronically Signed On 07-20-18 17:14:28 CDT by Lisandro Meza
== END 2018-07-20 13:29 | disposition home or self-care (01) ==
LOC: ER 10:08
DX: R51 Headache (principal); R11.0 Nausea; R07.9 Chest pain, unspecified
CPT/HCPCS: 36415; 71045; 80048; 80076; 83735; 83880; 84484; 85025; 85610; 87804; 93005; 96374; 99284

== ENCOUNTER 2018-09-06 08:25 | Emergency (ER) | payer SELFPAY ==
[2018-09-06] MEDS ORDERED: HYDROCODONE/APAP 7.5/325 MG TAB ONE (08:58)
--- NOTE | 2018-09-06 09:12 | RAD REPORT ---
EXAM DESCRIPTION: RAD - Knee Left 3 View - 09/06/2018 9:05 am CLINICAL HISTORY: Left knee pain status post injury FINDINGS: No fracture or dislocation is seen.
--- NOTE | 2018-09-06 09:16 | ER ---
Nurse's Notes [facility] Name: Austen Carrasco Age: 33 yrs Sex: Male : 1985 Arrival Date: 09/06/2018 Time: 08:27 Bed 19 Private MD: None, None Diagnosis: Pain in left knee Presentation: 09/06 08:29 Presenting complaint: Patient states: left knee injury happened yesterday while playing sv basketball and twisted and landed on it. Transition of care: patient was not received from another setting of care. Onset of symptoms was September 05, 2018. Risk Assessment: Do you want to hurt yourself or someone else? Patient reports no desire to harm self or others. Initial Sepsis Screen: Does the patient meet any 2 criteria? No. Patient's initial sepsis screen is negative. Does the patient have a suspected source of infection? No. Patient's initial sepsis screen is negative. Care prior to arrival: None. 08:29 Method Of Arrival: Ambulatory sv 08:29 Acuity: KT 4 sv Triage Assessment: 08:29 General: Appears in no apparent distress. uncomfortable, well groomed, well developed, sv Behavior is calm, cooperative, appropriate for age. Pain: Complains of pain in left knee Pain does not radiate. Pain currently is 10 out of 10 on a pain scale. Pain began 1 day ago. Is intermittent, episodic, Aggravated by increased activity, weight bearing, Current management - is no interventions. Neuro: Level of Consciousness is awake, alert, obeys commands, Oriented to person, place, time, situation, Moves all extremities. Gait is steady, with his crutches. Speech is normal. Respiratory: Airway is patent Respiratory effort is even, unlabored, Respiratory pattern is regular, symmetrical. Derm: Skin is pink, warm \\T\\ dry. Historical: - Allergies: 08:35 No Known Allergies; sv - PMHx: 08:35 "mild heart attack"; sv - PSHx: 08:35 None; sv - Immunization history:: Adult Immunizations up to date. - Social history:: Smoking status: Patient/guardian denies using tobacco, Patient uses alcohol, occasionally. - Ebola Screening: : No symptoms or risks identified at this time. Screenin:37 Abuse screen: Denies threats or abuse. Denies injuries from another. Nutritional sv screening: No deficits noted. Tuberculosis screening: No symptoms or risk factors identified. Fall Risk None identified. Assessment: 08:37 Reassessment: Patient appears in no apparent distress at this time. No changes from sv previously documented assessment. See triage assessment. 09:31 Reassessment: Patient appears in no apparent distress at this time. No changes from sv previously documented assessment. Patient and/or family updated on plan of care and expected duration. Pain level reassessed. Patient is alert, oriented x 3, equal unlabored respirations, skin warm/dry/pink. Vital Signs: 08:29 BP 132 / 96; Pulse 83; Resp 16; Temp 98.6; Pulse Ox 100% ; Weight 86.18 kg; Height 5 sv ft. 9 in. (175.26 cm); Pain 10/10; 08:29 Body Mass Index 28.06 (86.18 kg, 175.26 cm) sv ED Course: 08:27 Patient arrived in ED. mr 08:28 None, None is Private Physician. mr 08:28 [facility] Nav[facility]C [facility]. kb 08:28 Paulie Schmidt MD is Attending Physician. kb 08:29 Arm band placed on. sv 08:33 Becka Putnam, MARCELLUS is Primary Nurse. sv 08:34 Triage completed. sv 08:37 Patient has correct armband on for positive identification. Placed in gown. Bed in low sv position. Call light in reach. Adult w/ patient. Pulse ox on. NIBP on. Door closed. Head of bed elevated. 08:38 Nurse Practitioner and/or Physician Farm[employer] to see patient. sv 08:52 Awaiting for x-ray. sv 08:59 X-ray(s) taken. sv 09:05 X-ray completed. Portable x-ray completed in exam room. Patient tolerated procedure sw well. 09:05 Knee Left 3 View XRAY In Process Unspecified. EDMS 09:05 Awaiting radiology results. sv 09:31 No provider procedures requiring assistance completed. Patient did not have IV access sv during this emergency room visit. Knee immobilizer applied on left knee. Administered Medications: 08:52 Drug: Dryden (7.5 mg-325 mg) 1 tabs Route: PO; sv 09:32 Follow up: Response: No adverse reaction; No change in condition sv Outcome: 09:15 Discharge ordered by . kb 09:31 Discharged to home ambulatory, with crutches, with family. sv 09:31 Condition: stable 09:31 Discharge instructions given to patient, Instructed on discharge instructions, follow up and referral plans. medication usage, knee immobilizer Demonstrated understanding of instructions, follow-up care, medications, knee immobilizer Prescriptions given X 1. 09:32 Patient left the ED. sv Signatures: Dispatcher [employer] EDMS Jie Navas, Becka James RN RN Daysi Echavarriaen, Nelia
--- NOTE | 2018-09-06 09:16 | EDPHYS ---
Physician Documentation [facility] Name: Austen Carrasco Age: 33 yrs Sex: Male : 1985 Arrival Date: 09/06/2018 Time: 08:27 Bed 19 Private MD: None, None ED Physician Paulie Schmidt HPI: 09/06 09:22 This 33 yrs old Black Male presents to ER via Ambulatory with complaints of Knee Pain. kb 09:22 The patient presents with decreased range of motion, pain, that is acute, tenderness. kb The complaints affect the left knee. Context: The problem was sustained at a sports field or court, resulted from playing sports, basketball, the patient can partially bear weight, the patient is not able to ambulate. Onset: The symptoms/episode began/occurred yesterday. Modifying factors: The symptoms are alleviated by nothing. the symptoms are aggravated by movement, weight bearing, bending knee. Associated signs and symptoms: The patient has no apparent associated signs or symptoms. Treatment prior to arrival includes: no previous treatment. Severity of symptoms: At their worst the symptoms were moderate, in the emergency department the symptoms are unchanged. The patient has not experienced similar symptoms in the past. The patient has not recently seen a physician. Pt reports he felt a popping sensation in his left knee while playing basketball yesterday. Was able to ambulate after playing, but wasn't able to bear weight this morning. Historical: - Allergies: 08:35 No Known Allergies; sv - PMHx: 08:35 "mild heart attack"; sv - PSHx: 08:35 None; sv - Immunization history:: Adult Immunizations up to date. - Social history:: Smoking status: Patient/guardian denies using tobacco, Patient uses alcohol, occasionally. - Ebola Screening: : No symptoms or risks identified at this time. ROS: 09:22 Constitutional: Negative for fever, chills, and weight loss, Cardiovascular: Negative kb for chest pain, palpitations, and edema, Respiratory: Negative for shortness of breath, cough, wheezing, and pleuritic chest pain, Abdomen/GI: Negative for abdominal pain, nausea, vomiting, diarrhea, and constipation, Skin: Negative for injury, rash, and discoloration, Neuro: Negative for headache, weakness, numbness, tingling, and seizure. 09:22 MS/extremity: Positive for decreased range of motion, pain, tenderness, of the left knee. Exam: 09:22 Constitutional: This is a well developed, well nourished patient who is awake, alert, kb and in no acute distress. Head/Face: Normocephalic, atraumatic. Chest/axilla: Normal chest wall appearance and motion. Nontender with no deformity. No lesions are appreciated. Cardiovascular: Regular rate and rhythm with a normal S1 and S2. No gallops, murmurs, or rubs. Normal PMI, no JVD. No pulse deficits. Respiratory: Lungs have equal breath sounds bilaterally, clear to auscultation and percussion. No rales, rhonchi or wheezes noted. No increased work of breathing, no retractions or nasal flaring. Abdomen/GI: Soft, non-tender, with normal bowel sounds. No distension or tympany. No guarding or rebound. No evidence of tenderness throughout. Skin: Warm, dry with normal turgor. Normal color with no rashes, no lesions, and no evidence of cellulitis. Neuro: Awake and alert, GCS 15, oriented to person, place, time, and situation. Cranial nerves II-XII grossly intact. Motor strength 5/5 in all extremities. Sensory grossly intact. Cerebellar exam normal. Normal gait. 09:22 Musculoskeletal/extremity: Extremities: grossly normal except: noted in the left knee: pain, tenderness, ROM: limited active range of motion due to pain, Circulation is intact in all extremities. Weight bearing: can bear weight with assistance only, uses crutches. Vital Signs: 08:29 BP 132 / 96; Pulse 83; Resp 16; Temp 98.6; Pulse Ox 100% ; Weight 86.18 kg; Height 5 sv ft. 9 in. (175.26 cm); Pain 10/10; 08:29 Body Mass Index 28.06 (86.18 kg, 175.26 cm) sv MDM: 08:36 Patient medically screened. kb 09:25 Data reviewed: vital signs, nurses notes. Data interpreted: Pulse oximetry: on room air kb is 100 %. Interpretation: normal. Counseling: I had a detailed discussion with the patient and/or guardian regarding: the historical points, exam findings, and any diagnostic results supporting the discharge/admit diagnosis, radiology results, the need for outpatient follow up, a orthopedic surgeon, to return to the emergency department if symptoms worsen or persist or if there are any questions or concerns that arise at home. ED course: x-ray obtained per pt request. 09/06 08:41 Order name: Knee Left 3 View XRAY; Complete Time: 09:14 sv 09/06 09:14 Order name: Knee Immobilizer; Complete Time: 09:32 kb Administered Medications: 08:52 Drug: Sull[place] (7.5 mg-325 mg) 1 tabs Route: PO; sv 09:32 Follow up: Response: No adverse reaction; No change in condition sv Disposition: 09/06/18 09:15 Discharged to Home. Impression: Pain in left knee. - Condition is Stable. - Discharge Instructions: Knee Pain, [id number]. - Prescriptions for Diclofenac Sodium 75 mg Oral Tablet, Delayed Release (E.C.) - take 1 tablet by ORAL route 2 times per day As needed; 30 tablet. - Medication Reconciliation Form, Thank You Letter, Antibiotic Education, Prescription Opioid Use form. - Follow up: Emergency Department; When: As needed; Reason: Worsening of condition. Follow up: Private Physician; When: 2 - 3 days; Reason: Recheck today's complaints, Continuance of care, Re-evaluation by your physician. Addendum: 09/08/2018 07:06 Co-signature as Attending Physician, Paulie Schmidt MD. r n Signatures: Dispatcher [employer] EDJie Price, ROLAND-Carloz WATKINS-Becka Quevedo RN RN sv Nieto, Roman, MD MD furnace operator oil or gas: (The following items were deleted from the chart) 09/06 09:32 09:15 09/06/2018 09:15 Discharged to Home. Impression: Pain in left knee. Condition is sv Stable. Forms are Medication Reconciliation Form, Thank You Letter, Antibiotic Education, Prescription Opioid Use. Follow up: Emergency Department; When: As needed; Reason: Worsening of condition. Follow up: Private Physician; When: 2 - 3 days; Reason: Recheck today's complaints, Continuance of care, Re-evaluation by your physician. kb
== END 2018-09-06 09:32 | disposition home or self-care (01) ==
LOC: ER 08:25
DX: M25.562 Pain in left knee (principal)
CPT/HCPCS: 99284

== ENCOUNTER 2018-11-19 13:18 | Emergency (ER) | payer SELFPAY ==
[2018-11-19 16:35] LABS: Absolute Lymphocytes (CBC) 1.7 K/uL (0.7-4.9); Basophils % 0.7 % (0-1.3); Lymphocytes % 28.9 % (15.3-44.8); MPV 10.9 fL (7.6-11.3); RBC Red Blood Cell Count 5.32 M/uL (4.33-5.43)
[2018-11-19] MEDS ORDERED: ONDANSETRON 4 MG/2 ML VIAL ONE (16:49)
[2018-11-19 16:55] LABS: ALT/SGPT 29 U/L (12-78); AST/SGOT 10 U/L (15-37); Alkaline Phosphatase 47 U/L (45-117); BUN Blood Urea Nitrogen 7 mg/dL (7-18); Bicarbonate 30 mmol/L (21-32); Bilirubin Direct 0.1 mg/dL (0-0.2); Bilirubin Total 0.4 mg/dL (0.2-1.0); Glucose Level 84 mg/dL (74-106); Lipase 46 U/L (73-393); Potassium 3.8 mmol/L (3.5-5.1); Protein, Total 7.4 g/dL (6.4-8.2); Sodium Level 143 mmol/L (136-145)
--- NOTE | 2018-11-19 17:38 | RAD REPORT ---
EXAM DESCRIPTION: CT - Abdomen Pelvis W Contrast - 11/19/2018 5:25 pm CLINICAL HISTORY: Abdominal pain, GI bleed COMPARISON: None. TECHNIQUE: Biphasic, helical CT imaging of the abdomen and pelvis was performed following 100 ml non -ionic IV contrast. No oral contrast administered. All CT scans are performed using dose optimization technique as appropriate and may include automated exposure control or mA/KV adjustment according to patient size. FINDINGS: No suspicious findings in the lung bases. The liver, spleen, and pancreas show no suspicious findings. Gallbladder and biliary tree are also wi thout suspicious finding. Symmetric renal function is seen with no hydronephrosis or suspicious renal mass. No pyelonephritis o r acute parenchymal process. No bladder abnormalities. No adrenal abnormalities. No dilated bowel loops or bowel wall thickening. No acute GI process identifiable. Mucosal level infl ammatory changes may be occult on CT imaging. No measurable diverticulosis. No free air, free fluid or inflammatory stranding. No hernia, mass or bulky lymphadenopathy. No suspicious bony findings. IMPRESSION: Contrast enhanced CT abdomen and pelvis showing no significant or suspicious finding. N o abnormality seen as a source for GI bleeding.
--- NOTE | 2018-11-19 18:16 | EDPHYS ---
Physician Documentation [facility] Name: Austen Carrasco Age: 33 yrs Sex: Male : 1985 Arrival Date: 11/19/2018 Time: 13:19 Bed 14 Private MD: ED Physician David Welsh HPI: 11/19 16:00 This 33 yrs old Black Male presents to ER via Ambulatory with complaints of Bloody pm1 Stools. 16:00 The patient presents to the emergency department with rectal bleeding, a small amount, pm1 on toilet paper. Onset: The symptoms/episode began/occurred 1 month(s) ago. Abdominal pain: located in the left lower quadrant. Modifying factors: The symptoms are alleviated by nothing, the symptoms are aggravated by bowel movement. Associated signs and symptoms: Pertinent positives: nausea, Pertinent negatives: chest pain, dizziness at rest, dizziness when standing, fever, shortness of breath, vomiting. Severity of symptoms: in the emergency department the symptoms have improved. The patient has not recently seen a physician, and does not have an established primary care provider, [facility] and has not reestablished care since. Patient with trace amount of blood present on toilet paper with bowel movements on and off for 1 month. Patient reports some pain with bowel movement. Today patient reports one streak of bright red blood in toilet this AM. Patient with bowel movement in ER without any blood present . Historical: - Allergies: 13:36 No Known Allergies; ss - Home Meds: 13:36 "supposed to take blood pressure medication" [Active]; ss - PMHx: 13:36 Hypertension; Myocardial infarction; ss - PSHx: 13:36 None; ss - Immunization history:: Adult Immunizations unknown. - Social history:: Smoking status: Patient/guardian denies using tobacco. - Ebola Screening: : Patient denies exposure to infectious person Patient denies travel to an Ebola-affected area in the 21 days before illness onset. ROS: 16:00 Constitutional: Negative for fever, chills, and weight loss, Eyes: Negative for injury, pm1 pain, redness, and discharge, ENT: Negative for injury, pain, and discharge, Neck: Negative for injury, pain, and swelling, Cardiovascular: Negative for chest pain, palpitations, and edema, Respiratory: Negative for shortness of breath, cough, wheezing, and pleuritic chest pain. 16:00 Back: Negative for injury and pain, : Negative for injury, bleeding, discharge, and swelling, MS/Extremity: Negative for injury and deformity, Skin: Negative for injury, rash, and discoloration, Neuro: Negative for headache, weakness, numbness, tingling, and seizure. 16:00 Abdomen/GI: Positive for abdominal pain, nausea, of the left lower quadrant, Negative for vomiting, diarrhea, constipation. Exam: 16:00 Constitutional: This is a well developed, well nourished patient who is awake, alert, pm1 and in no acute distress. Head/Face: Normocephalic, atraumatic. Chest/axilla: Normal chest wall appearance and motion. Nontender with no deformity. No lesions are appreciated. Cardiovascular: Regular rate and rhythm with a normal S1 and S2. No gallops, murmurs, or rubs. Normal PMI, no JVD. No pulse deficits. Respiratory: Lungs have equal breath sounds bilaterally, clear to auscultation and percussion. No rales, rhonchi or wheezes noted. No increased work of breathing, no retractions or nasal flaring. Back: No spinal tenderness. No costovertebral tenderness. Full range of motion. Skin: Warm, dry with normal turgor. Normal color with no rashes, no lesions, and no evidence of cellulitis. MS/ Extremity: Pulses equal, no cyanosis. Neurovascular intact. Full, normal range of motion. 16:00 Abdomen/GI: Inspection: abdomen appears normal, Bowel sounds: normal, Palpation: abdomen is soft and non-tender, Rectal exam: rectal tone normal, Stool: normal, brown, hemorrhoid(s), are not appreciated, mass, is not appreciated, tenderness, that is mild, Anal fissure present at 6 o'clock, Melanie GERMAIN as international freight forwarder. 16:00 Neuro: Orientation: is normal, Motor: is normal, moves all fours, strength is normal, strength is 5/5 in all extremities. Vital Signs: 13:36 BP 157 / 105; Pulse 75; Resp 20; Temp 98.8(TE); Pulse Ox 99% on R/A; Weight 90.72 kg; ss Height 5 ft. 9 in. (175.26 cm); Pain 0/10; 16:28 BP 141 / 101; Pulse 70; Resp 18; Pulse Ox 99% on R/A; aj1 17:45 BP 137 / 98; Pulse 72; Resp 18; Pulse Ox 99% ; aj1 13:36 Body Mass Index 29.53 (90.72 kg, 175.26 cm) ss MDM: 15:29 Patient medically screened. pm1 16:30 Data reviewed: vital signs. Data interpreted: Pulse oximetry: on room air is 99 %. pm1 Interpretation: normal. 18:13 Counseling: I had a detailed discussion with the patient and/or guardian regarding: the pm1 historical points, exam findings, and any diagnostic results supporting the discharge/admit diagnosis, lab results, radiology results, the need for outpatient follow up, for definitive care, a general surgeon, a able bodied tankerman, to return to the emergency department if symptoms worsen or persist or if there are any questions or concerns that arise at home. 18:26 ED course: Patient requested refill of his hypertension medication. Also requested pm1 medication for nausea. 18:26 ED course: Patient took lisinopril 20 mg PO in the past. pm1 11/19 16:05 Order name: Basic Metabolic Panel; Complete Time: 17:02 pm1 11/19 16:05 Order name: CBC with Diff; Complete Time: 16:40 pm1 11/19 16:05 Order name: Creatinine for Radiology; Complete Time: 16:52 pm11/19 16:05 Order name: Hepatic Function; Complete Time: 17:02 pm1 11/19 16:05 Order name: Lipase; Complete Time: 17:02 pm1 11/19 16:05 Order name: CT Abd/Pelvis - IV Contrast Only; Complete Time: 18:13 pm11/19 16:05 Order name: IV Saline Lock; Complete Time: 16:26 pm1 11/19 16:05 Order name: Labs collected and sent; Complete Time: 16:26 pm1 Administered Medications: 16:33 Drug: Zofran 4 mg Route: IVP; Site: right antecubital; aj1 18:29 Follow up: Response: No adverse reaction aj1 Disposition: 11/20 09:49 Co-signature as Attending Physician, David Welsh MD I agree with the assessment and tari plan of care. Disposition: 11/19/18 18:15 Discharged to Home. Impression: Anal fissure, unspecified. - Condition is Stable. - Discharge Instructions: Anal Fissure, Adult, Hypertension, Managing Your Hypertension. - Prescriptions for Colace 100 mg Oral Tablet - take 1 tablet by ORAL route every 12 hours; 14 tablet. Zofran 4 mg Oral Tablet - take 1 tablet by ORAL route every 12 hours As needed; 20 tablet. Lisinopril 20 mg Oral Tablet - take 1 tablet by ORAL route once daily; 20 tablet. - Medication Reconciliation Form, Thank You Letter, Antibiotic Education, Prescription Opioid Use form. - Follow up: Emergency Department; When: As needed; Reason: Worsening of condition. Follow up: Private Physician; When: 2 - 3 days; Reason: Recheck today's complaints, Continuance of care, Re-evaluation by your physician. - Problem is new. - Symptoms have improved. Signatures: Dispatcher [employer] EDSteffany Leon RN RN aj1 David Welsh MD MD cha Smirch, Shelby, RN RN ss Marinas, Patrick, KALEB WAFER MACHINE OPERATOR pm1 Corrections: (The following items were deleted from the chart) 11/19 16:30 16:00 Abdomen/GI: Inspection: abdomen appears normal, Bowel sounds: normal, Palpation: pm1 abdomen is soft and non-tender, Rectal exam: rectal tone normal, Stool: normal, brown, hemorrhoid(s), are not appreciated, mass, is not appreciated, tenderness, that is mild, Anal fissure present at 6 o'clock, Melanie GERMAIN, pm1 18:15 18:13 Counseling: I had a detailed discussion with the patient and/or guardian pm1 regarding: the historical points, exam findings, and any diagnostic results supporting the discharge/admit diagnosis, lab results, radiology results, the need for outpatient follow up, to return to the emergency department if symptoms worsen or persist or if there are any questions or concerns that arise at home, pm1 18:30 18:15 11/19/2018 18:15 Discharged to Home. Impression: Anal fissure, unspecified. aj1 Condition is Stable. Forms are Medication Reconciliation Form, Thank You Letter, Antibiotic Education, Prescription Opioid Use. Follow up: Emergency Department; When: As needed; Reason: Worsening of condition. Follow up: Private Physician; When: 2 - 3 days; Reason: Recheck today's complaints, Continuance of care, Re-evaluation by your physician. Problem is new. Symptoms have improved. pm1
--- NOTE | 2018-11-19 18:16 | ER ---
Nurse's Notes [facility] Name: Austen Carrasco Age: 33 yrs Sex: Male : 1985 Arrival Date: 11/19/2018 Time: 13:19 Bed 14 Private MD: Diagnosis: Anal fissure, unspecified Presentation: 11/19 13:34 Presenting complaint: Patient states: "When I wipe there was blood on the toilet paper. ss This has been going on about a month, but today at work there was actually blood in the toilet.". Transition of care: patient was not received from another setting of care. Onset of symptoms is unknown. Risk Assessment: Do you want to hurt yourself or someone else? Patient reports no desire to harm self or others. Initial Sepsis Screen: Does the patient meet any 2 criteria? No. Patient's initial sepsis screen is negative. Does the patient have a suspected source of infection? No. Patient's initial sepsis screen is negative. Care prior to arrival: None. 13:34 Method Of Arrival: Ambulatory ss 13:34 Acuity: KT 3 ss Historical: - Allergies: 13:36 No Known Allergies; ss - Home Meds: 13:36 "supposed to take blood pressure medication" [Active]; ss - PMHx: 13:36 Hypertension; Myocardial infarction; ss - PSHx: 13:36 None; ss - Immunization history:: Adult Immunizations unknown. - Social history:: Smoking status: Patient/guardian denies using tobacco. - Ebola Screening: : Patient denies exposure to infectious person Patient denies travel to an Ebola-affected area in the 21 days before illness onset. Screenin:57 Abuse screen: Denies threats or abuse. Denies injuries from another. Nutritional aj1 screening: No deficits noted. Tuberculosis screening: No symptoms or risk factors identified. 18:29 Fall Risk None identified. aj1 Assessment: 15:35 General: Appears in no apparent distress. uncomfortable, Behavior is calm, cooperative, aj1 appropriate for age. Pain: Complains of pain in left lower quadrant. Neuro: Level of Consciousness is awake, alert, obeys commands, Oriented to person, place, time, situation, Moves all extremities. Full function Gait is steady, Speech is normal, Facial symmetry appears normal, Reports dizziness. Cardiovascular: Patient's skin is warm and dry. Rhythm is sinus rhythm. Respiratory: Airway is patent Respiratory effort is even, unlabored, Respiratory pattern is regular, symmetrical. GI: Abdomen is non-distended, Bowel sounds present X 4 quads. Abd is soft and non tender X 4 quads. Reports bloody stool. : No signs and/or symptoms were reported regarding the genitourinary system. EENT: No signs and/or symptoms were reported regarding the EENT system. Derm: No signs and/or symptoms reported regarding the dermatologic system. Skin is pink, warm \\T\\ dry. normal. Musculoskeletal: No signs and/or symptoms reported regarding the musculoskeletal system. Circulation, motion, and sensation intact. 16:45 Reassessment: Patient appears in no apparent distress at this time. No changes from 1 previously documented assessment. Patient and/or family updated on plan of care and expected duration. Pain level reassessed. Patient is alert, oriented x 3, equal unlabored respirations, skin warm/dry/pink. 17:54 Reassessment: Patient appears in no apparent distress at this time. No changes from aj1 previously documented assessment. Patient and/or family updated on plan of care and expected duration. Pain level reassessed. Patient is alert, oriented x 3, equal unlabored respirations, skin warm/dry/pink. Vital Signs: 13:36 BP 157 / 105; Pulse 75; Resp 20; Temp 98.8(TE); Pulse Ox 99% on R/A; Weight 90.72 kg; ss Height 5 ft. 9 in. (175.26 cm); Pain 0/10; 16:28 BP 141 / 101; Pulse 70; Resp 18; Pulse Ox 99% on R/A; aj1 17:45 BP 137 / 98; Pulse 72; Resp 18; Pulse Ox 99% ; aj1 13:36 Body Mass Index 29.53 (90.72 kg, 175.26 cm) ED Course: 13:19 Patient arrived in ED. as 13:35 Triage completed. ss 13:36 Arm band placed on left wrist. ss 15:28 Igor Holland NP is PHCP. pm1 15:28 David Welsh MD is Attending Physician. pm1 15:35 Steffany Islas RN is Primary Nurse. aj1 15:57 Patient has correct armband on for positive identification. Bed in low position. Call aj1 light in reach. Side rails up X 1. 15:57 No provider procedures requiring assistance completed. aj1 16:27 Inserted saline lock: 20 gauge in right antecubital area, using aseptic technique. aj1 upper arm, using aseptic technique. 16:29 Radiology exam delayed due to lab results not completed at this time. (BUN/Creatinine). 16:44 Radiology exam delayed due to lab results not completed at this time. (BUN/Creatinine). ia 17:27 CT Abd/Pelvis - IV Contrast Only In Process Unspecified. EDWA 17:52 CT completed. Patient tolerated procedure well. Patient moved to CT via wheelchair. Patient moved back from CT. 18:29 IV discontinued, intact, bleeding controlled, No redness/swelling at site. Pressure aj1 dressing applied. Administered Medications: 16:33 Drug: Zofran 4 mg Route: IVP; Site: right antecubital; aj1 18:29 Follow up: Response: No adverse reaction aj1 Outcome: 18:15 Discharge ordered by MD. pm1 18:29 Discharged to home ambulatory. aj1 18:29 Condition: good 18:29 Discharge instructions given to patient, Instructed on discharge instructions, follow up and referral plans. medication usage, Demonstrated understanding of instructions, follow-up care, medications, Prescriptions given X 3. 18:30 Patient left the ED. aj1 Signatures: Dispatcher [employer] EDSteffany Leon RN RN aj1 Shaw Burleson Amelia as Smirch, Shelby, RN RN Igor Holland, POLYMER SPECIALIST POLYMER SPECIALIST pm1 Vipul Weeks
== END 2018-11-19 18:30 | disposition home or self-care (01) ==
LOC: ER 13:18
DX: K60.2 Anal fissure, unspecified (principal); I10 Essential (primary) hypertension; I25.2 Old myocardial infarction
CPT/HCPCS: 36415; 74177; 80048; 80076; 83690; 85025; 96374; 99285; J2405; Q9967

== ENCOUNTER 2020-11-07 06:29 | Emergency (ER) | payer SELFPAY ==
--- NOTE | 2020-11-07 07:11 | ER ---
Nurse's Notes [facility] Name: Austen Carrasco Age: 35 yrs Sex: Male : 1985 Arrival Date: 11/07/2020 Time: 06:39 Bed Waiting Private MD: Diagnosis: Assessment: 11/07 07:11 Reassessment: pt told registration staff that his nose stopped bleeding and he would iw come back if it got worse. ED Course: 06:39 Patient arrived in ED. am4 06:45 Jie Navas FNP-C is [facility]. tamara 06:45 Tomi Marvin MD is Attending Physician. kb Administered Medications: No medications were administered Outcome: 07:11 Patient left the ED. iw Signatures: Jie Navas FNP-C FNP-Ckb Williams, Irene, RN RN Pat Raygoza am4
== END 2020-11-07 07:11 | disposition left against medical advice (07) ==
LOC: ER 06:29
DX: Z02.9 Encounter for administrative examinations, unspecified (principal)

== ENCOUNTER 2020-11-07 09:10 | Emergency (ER) | payer SELFPAY ==
--- NOTE | 2020-11-07 09:52 | ER ---
Nurse's Notes [facility] Name: Austen Carrasco Age: 35 yrs Sex: Male : 1985 Arrival Date: 11/07/2020 Time: 09:11 Bed 13 Private MD: Diagnosis: Epistaxis-resolved;Essential (primary) hypertension Presentation: 11/07 09:31 Chief complaint: Patient states: left nostril started bleeding about 430 am, iw intermittent, started back up about 30 minutes ago. Coronavirus screen:. Ebola Screen: Patient negative for fever greater than or equal to 101.5 degrees Fahrenheit, and additional compatible Ebola Virus Disease symptoms Patient denies exposure to infectious person. Patient denies travel to an Ebola-affected area in the 21 days before illness onset. No symptoms or risks identified at this time. Initial Sepsis Screen: Does the patient meet any 2 criteria? No. Patient's initial sepsis screen is negative. Does the patient have a suspected source of infection? No. Patient's initial sepsis screen is negative. Risk Assessment: Do you want to hurt yourself or someone else? Patient reports no desire to harm self or others. Onset of symptoms was November 07, 2020. 09:31 Method Of Arrival: Ambulatory iw 09:31 Acuity: KT 3 iw Historical: - Allergies: 09:32 No Known Allergies; iw - Home Meds: 09:32 "supposed to take blood pressure medication" [Active]; iw - PMHx: 09:32 "mild heart attack"; Hypertension; iw - PSHx: 09:32 None; iw - Immunization history:: Client reports having NOT received the Covid vaccine. - Social history:: Smoking status: Patient denies any tobacco usage or history of. Screenin:40 Abuse screen: Denies threats or abuse. Nutritional screening: No deficits noted. ap3 Tuberculosis screening: No symptoms or risk factors identified. Fall Risk None identified. Assessment: 09:39 General: Appears in no apparent distress. comfortable, Behavior is calm, cooperative, ap3 appropriate for age. Pain: Denies pain. Neuro: No deficits noted. Level of Consciousness is awake, alert, obeys commands, Oriented to person, place, time, situation, Appropriate for age Moves all extremities. Gait is steady, Speech is normal. Cardiovascular: Denies chest pain, shortness of breath, Capillary refill < 3 seconds. Respiratory: Airway is patent Respiratory effort is even, unlabored, Respiratory pattern is regular, symmetrical. GI: No signs and/or symptoms were reported involving the gastrointestinal system. : No signs and/or symptoms were reported regarding the genitourinary system. EENT: Reports nasal discharge that is bloody since 4X this morning. Derm: No signs and/or symptoms reported regarding the dermatologic system. 09:53 Reassessment: patient provided with a nasal clamp for future nose bleeds. ap3 Vital Signs: 09:31 BP 156 / 110; Pulse 65; Resp 16; Temp 98.0; Pulse Ox 99% ; Weight 97.52 kg; Height 5 iw ft. 9 in. (175.26 cm); 09:49 BP 147 / 116; Pulse 64; Resp 17; Pulse Ox 100% on R/A; Pain 0/10; ap3 09:31 Body Mass Index 31.75 (97.52 kg, 175.26 cm) iw ED Course: 09:11 Patient arrived in ED. am2 09:12 Jie Navas F[facility]-C [facility]. kb 09:12 Tomi Marvin MD is Attending Physician. kb 09:32 Triage completed. iw 09:33 Arm band placed on. iw 09:34 Ivon Amaya, MARCELLUS is Primary Nurse. ap3 09:40 Nurse Practitioner and/or Physician Tankage Grinder Operator to see patient. ap3 09:40 Patient has correct armband on for positive identification. Bed in low position. Call ap3 light in reach. Side rails up X2. Pulse ox on. NIBP on. Door closed. Noise minimized. 09:52 Becka Astudillo MD is Referral Physician. kb 09:57 No provider procedures requiring assistance completed. Patient did not have IV access ap3 during this emergency room visit. Administered Medications: No medications were administered Outcome: 09:51 Discharge ordered by . kb 09:57 Discharged to home ambulatory. ap3 09:57 Condition: good 09:57 Discharge instructions given to patient, Instructed on discharge instructions, follow up and referral plans. Demonstrated understanding of instructions, follow-up care. 09:58 Patient left the ED. ap3 Signatures: Jie Navas FNP-C FNP-Aviva Pineda RN RN Rajput, IvonIvon Davis RN RN ap3 Corrections: (The following items were deleted from the chart) 35 09:32 PMHx: Myocardial infarction; iw iw
--- NOTE | 2020-11-07 09:52 | EDPHYS ---
Physician Documentation [facility] Name: Austen Carrasco Age: 35 yrs Sex: Male : 1985 Arrival Date: 11/07/2020 Time: 09:11 Bed 13 Private MD: ED Physician Tomi Marvin HPI: 11/07 10:47 This 35 yrs old Black Male presents to ER via Ambulatory with complaints of Nose Bleed. kb 10:47 The patient presents with a nose bleed, that is apparently anterior, from the left kb nare, causative factors include: unknown, and the bleeding resolved prior to arrival. Onset: The symptoms/episode began/occurred this morning. Modifying factors: The symptoms are alleviated by nothing. the symptoms are aggravated by nothing. Associated signs and symptoms: The patient has no apparent associated signs or symptoms, Loss of consciousness: the patient experienced no loss of consciousness. Severity of symptoms: At their worst the symptoms were moderate in the emergency department the symptoms have resolved. The patient has not experienced similar symptoms in the past. The patient has not recently seen a physician. Pt reports intermittent nose bleed this morning. . Historical: - Allergies: 09:32 No Known Allergies; iw - Home Meds: 09:32 "supposed to take blood pressure medication" [Active]; iw - PMHx: 09:32 "mild heart attack"; Hypertension; iw - PSHx: 09:32 None; iw - Immunization history:: Client reports having NOT received the Covid vaccine. - Social history:: Smoking status: Patient denies any tobacco usage or history of. ROS: 10:46 Constitutional: Negative for fever, chills, and weight loss. kb 10:46 ENT: Positive for nose bleed. 10:46 All other systems are negative. Exam: 10:46 Constitutional: This is a well developed, well nourished patient who is awake, alert, kb and in no acute distress. Head/Face: Normocephalic, atraumatic. Cardiovascular: Regular rate and rhythm with a normal S1 and S2. No gallops, murmurs, or rubs. No pulse deficits. Respiratory: Respirations even and unlabored. No increased work of breathing, no retractions or nasal flaring. Skin: Warm, dry with normal turgor. Normal color. MS/ Extremity: Pulses equal, no cyanosis. Neurovascular intact. Full, normal range of motion. Neuro: Awake and alert, GCS 15, oriented to person, place, time, and situation. Moves all extremities. Normal gait. Psych: Awake, alert, with orientation to person, place and time. Behavior, mood, and affect are within normal limits. 10:46 ENT: Nose: clotted blood, in left nare, Examination of the other nostril shows no obvious abnormality. Vital Signs: 09:31 BP 156 / 110; Pulse 65; Resp 16; Temp 98.0; Pulse Ox 99% ; Weight 97.52 kg; Height 5 iw ft. 9 in. (175.26 cm); 09:49 BP 147 / 116; Pulse 64; Resp 17; Pulse Ox 100% on R/A; Pain 0/10; ap3 09:31 Body Mass Index 31.75 (97.52 kg, 175.26 cm) iw MDM: 09:36 Patient medically screened. kb 09:47 Data reviewed: vital signs, nurses notes. Data interpreted: Pulse oximetry: on room air kb is 100 %. Interpretation: normal. Counseling: I had a detailed discussion with the patient and/or guardian regarding: the historical points, exam findings, and any diagnostic results supporting the discharge/admit diagnosis, the need for outpatient follow up, an ENT specialist, to return to the emergency department if symptoms worsen or persist or if there are any questions or concerns that arise at home. ED course: Pt reports BP is normally 140-150/110. States he has been prescribed several BP medications in the past, but he stopped taking them due to different side effects. States he keeps a log at home and this BP is normal for him. Denies headache, dizziness, lightheadedness, chest pain, shortness of breath. Pt educated on risks of chronic untreated hypertension and need for management. Pt will follow up with PCP for HTN management. Discussed with Dr Marvin and all in agreement with outpatient management of BP. Administered Medications: No medications were administered Disposition: 15:02 Co-signature as Attending Physician, Tomi Marvin MD I agree with the assessment and kdr plan of care. Disposition Summary: 11/07/20 09:51 Discharge Ordered Location: Home kb Condition: Stable kb Diagnosis - Epistaxis - resolved kb - Essential (primary) hypertension kb Followup: kb - With: Emergency Department - When: As needed - Reason: Worsening of condition Followup: kb - With: Private Physician - When: 2 - 3 days - Reason: Recheck today's complaints, Continuance of care, Re-evaluation by your physician Followup: kb - With: Becka Astudillo MD - When: As needed - Reason: Recheck today's complaints Discharge Instructions: - Discharge Summary Sheet kb - Hypertension, Adult, [id number] kb - Nosebleed, Adult, [id number] kb Forms: - Medication Reconciliation Form kb - Thank You Letter kb - Antibiotic Education kb - Prescription Opioid Use kb Signatures: Jie Navas, ROLAND-C ROLAND-Tomi Garcia MD MD kdr Aviva Kwan RN RN iw Corrections: (The following items were deleted from the chart) 09:33 09:32 PMHx: Myocardial infarction; iw iw
[2020-11-07 10:03] VITALS: TEMP 98
[2020-11-07 10:05] VITALS: BP 147/116; O2SAT 100
== END 2020-11-07 09:58 | disposition home or self-care (01) ==
LOC: ER 09:10
DX: I10 Essential (primary) hypertension (principal)
CPT/HCPCS: 99283